=== PATIENT | female | born 1970 | race Caucasian/White ===

== ENCOUNTER → 2017-11-02 | Outpatient (CLI) | payer OTHER ==
[2017-11-02 12:11] LABS: Basophils % (A) 1 %; Eosinophils # (A) 0.2 k/uL (0-0.7); Eosinophils % (A) 4 %; HCT 43.5 % (34.0-46.0); HGB 13.9 gm/dL (11.4-16.0); Lymphocytes # (A) 1.2 k/uL (1.0-4.8); Lymphocytes % (A) 26 %; MCH 30.6 pg (25.0-35.0); MCHC 32.1 g/dL (31.0-37.0); MCV 95.3 fL (80.0-100.0); Mean Platelet Volume 7.3; Monocytes # (A) 0.4 k/uL (0-1.0); Monocytes % (A) 8 %; Neutrophils # (A) 2.7 k/uL (1.3-7.7); Neutrophils % (A) 59 %; Platelet Count 220 k/uL (150-450); RBC 4.57 m/uL (3.80-5.40); RDW 13.1 % (11.5-15.5); WBC 4.6 k/uL (3.8-10.6)
[2017-11-02 12:27] LABS: Anion Gap 9 mmol/L; Blood Urea Nitrogen 11 mg/dL (7-17); Carbon Dioxide 26 mmol/L (22-30); Chloride 106 mmol/L (98-107); Glucose 117 mg/dL (74-99); Sodium 141 mmol/L (137-145)
[2017-11-02 12:30] LABS: Potassium 3.9 mmol/L (3.5-5.1)
== END | disposition home or self-care (01) ==
LOC: LABPAT 11:19
PROVIDERS: ATTEND Obstetrics & Gynecology Obstetrics
DX: Z01.812 Encounter for preprocedural laboratory examination (principal); N92.0 Excessive and frequent menstruation with regular cycle
CPT/HCPCS: 36415; 80051; 82565; 82947; 84520; 85025; 86850; 86900; 86901; 87086

== ENCOUNTER 2017-11-10 05:58 | Day surgery (SDC) | payer OTHER ==
[2017-11-05 10:55] VITALS: BMI 23.0
[~2017-11-10 05:58] MED LIST: ACETAMINOPHEN IV (For NPO) 1,000 MG in EMPTY BAG 1 BAG IVPB ONE; DEXAMETHASONE SOD PHOSPHATE 10 MG/ML 1 ML VIAL IV ONE; HYDROmorphone 0.5 MG/0.5 ML SYRINGE IVP PRN; LIDOCAINE 1% 20 ML VIAL (10MG/ML) FOR IV START INTRADERMA PRN; ONDANSETRON 4 MG/2 ML VIAL IVP ONE; SCOPOLAMINE 1.5MG/72HR PATCH TRANSDERM ONE; ceFAZolin IN SWFI 2 GM/20 ML SYRINGE IVP ONE
[2017-11-10] MEDS: LACTATED RINGERS 1,000 ML IV SCH ×2 (06:44→19:25)
[2017-11-10] MEDS ORDERED: BUPIVACAINE (PF) 0.25% 30 ML VIAL SQ ONE ×2 (07:37)
[2017-11-10] MEDS ORDERED: HYDROmorphone (PF) 1 MG/ML ONE (07:41)
[2017-11-10] MEDS ORDERED: GLYCOPYRROLATE 0.2 MG/ML 2 ML VIAL ONE (07:41)
[2017-11-10] MEDS ORDERED: PROPOFOL 10 MG/ML 20 ML VIAL IV ONE (07:41)
[2017-11-10] MEDS ORDERED: LIDOCAINE 1% INJ 10MG/ML (20 ML MDV) ONE (07:41)
[2017-11-10] MEDS ORDERED: MIDAZOLAM 2 MG/2 ML VIAL ONE (07:41)
[2017-11-10] MEDS ORDERED: ROCURONIUM BROMIDE 10 MG/ML 10 ML VIAL IV ONE (07:41)
[2017-11-10] MEDS ORDERED: NEOSTIGMINE 1 MG/ML 10 ML VIAL ONE (07:41)
[2017-11-10] MEDS ORDERED: fentaNYL (PF) 50 MCG/ML 2 ML AMP ONE (07:41)
[2017-11-10] MEDS ORDERED: SUCCINYLCHOLINE CHLORIDE 100 MG/5 ML SYR IV ONE (07:41)
[2017-11-10] MEDS ORDERED: ONDANSETRON 4 MG/2 ML VIAL IVP PRN (07:44)
[2017-11-10] MEDS ORDERED: Acetaminophen-Codeine 300-30mg TAB PO PRN ×2 (07:44)
[2017-11-10] MEDS ORDERED: SIMETHICONE 80 MG CHEWABLE PO PRN (07:44)
[2017-11-10] MEDS ORDERED: LACTATED RINGERS 1,000 ML IV SCH (07:45)
[2017-11-10] MEDS ORDERED: IBUPROFEN IV 800 MG in SODIUM CHLORIDE 0.9% 250 ML IV ONE (07:46)
--- NOTE | 2017-11-10 09:29 | P.OP ---
Date of Procedure: 11/10/17 Preoperative Diagnosis: menometrorrhagia, failed endometrial ablation Postoperative Diagnosis: same Procedure(s) Performed: Robotic-assisted vaginal hysterectomy, diagnostic cystoscopy Anesthesia: NORAA Surgeon: Alina Mena Music Typographer #1: Dmitri Roberson Estimated Blood Loss (ml): 30 IV fluids (ml): 700 Urine output (ml): 350 Pathology: other (Uterus, fallopian tubes) Condition: stable Disposition: PACU Indications for Procedure: Failed ablation, abnormal uterine bleeding, dysmenorrhea Operative Findings: Diffuse endometriosis in the pelvis, functional left ovarian cyst, otherwise normal-appearing upper abdomen, pelvis Description of Procedure: Patient was seen in the preoperative area and informed consent was obtained prior to this surgery. Patient was then taken to the operating room where general anesthesia was obtained without difficulty by the anesthesia department. She was then prepped and draped in the normal sterile fashion in the dorsal lithotomy position. Speculum space the posterior vaginal vomiting until the cervix is visualized and grasped with a single-tooth tenaculum the endocervical canal was then dilated and a [employer] uterine manipulator was advanced into the unusual cavity as a means to manipulate the uterus during the procedure. Attention was then turned to the patient's abdomen where approx 2 fingerbreadths above the umbilicus a small skin incision is made, through this incision a small veress needle was placed, CO2 insufflation was allowed to occur once a drop in CO2 pressure was noted with insufflation of CO2 gas. Approximately 3 L of gas were used to obtain pneumoperitoneum. At this time the incision was elongated to 12 mm and a 12 mm trocar and sleeve is placed under direct visualization. An inspection of the patient's pelvis revealed the above-noted findings. At this time the additional port sites her platelets 10 cm lateral 3 cm inferior for the midline port these are upper ports individually machine 8 mm ports were placed under direct visualization. The left upper quadrant 12 mm trocar and sleeve is placed under direct visualization. At this time the [employer] robot was docked in usual fashion. The operative ports were then placed. The right operative on monopolar scissors , and the left operative arm the bipolar forceps was placed. Attention was then turned to the patient's left fallopian tube which was grasped gently and transected with cautery. Hemostasis was appreciated uterine ovarian ligament was then visualized regulated distally partially divided. This was continued through the broad cord around which was coagulated and transected. The bladder flap from the left wasn't created using sharp and blunt dissection. Attention was then turned to the patient's right adnexa which the floppy tube was grasped and it was transected with cautery hemostasis was appreciated. The utero- ovarian ligament was visualized regulated and transected. The stasis was noted once again. This continued through the broad cord around which was quite delivered 2 and transected. The bladder flap from the right was then created using sharp and blunt dissection. At this time a Ray-Cornelius was placed in the abdomen and the bladder was further dissected away from the operating field. This Ray-Cornelius was then removed. At this point the ascending branch from the uterine artery on the right was visualized regulated and transected hemostasis was noted this was then repeated on the left. The only remaining attachment at this point was the vaginal test not therefore a colpotomy incision was made in a circumferential fashion and the uterus and fallopian tubes were delivered through the vaginal opening. The pelvis was then irrigated copiously. Hemostasis was noted and the vaginal cuff closed with 0 Vicryl in a figure-of- eight fashion. approximately 5 sutures were used to obtain closure. At this time the instruments removed from the patient's abdomen and the [employer] N[employer] robot was undocked in the usual fashion. Attention was then turned the Acevedo catheter which was removed without difficulty. Cystoscopy was performed. The cystoscopy was placed through the urethra for the bladder bladder bubbles noted in both ureteral or position of the sling clear yellow urine. A 360 survey of the bladder revealed no injury. The cystoscope was removed and the Acevedo catheter was replaced. Attention was then turned to the patient's abdomen with the skin incisions were closed with 4-0 Vicryl in a separate particular fashion Steri-Strips and sterile dressings were applied. Next All counts are correct 2, patient tolerated procedure well and was taken the recovery room awake and in stable condition
[2017-11-10] MEDS: SENNOSIDES-DOCUSATE SODIUM 1 EACH TAB PO SCH (19:34)
[2017-11-11 05:08] VITALS: PULSE 74
--- NOTE | 2017-11-11 08:15 | P.PN ---
Subjective Progress Note Date: 11/11/17 Principal diagnosis: Postop day 1 status post robotic-assisted vaginal hysterectomy, diagnostic cystoscopy Patient has done well postoperatively. She is involuting without difficulty. Her Acevedo catheter was removed without difficulty this morning. She denies complaints of pain and states it is well-controlled with her oral medication that she is receiving. She denies any vaginal bleeding. She denies nausea or vomiting and is tolerating a regular diet. Objective - Vital Signs Vital signs: Vital Signs Temp 99 F 11/11/17 00:00 Pulse 74 11/11/17 00:00 Resp 16 11/11/17 00:00 BP 111/61 11/11/17 00:00 Pulse Ox 99 11/11/17 00:00 Intake & Output 11/10/17 11/11/17 11/11/17 18:59 06:59 18:59 Intake Total 1000 Output Total 460 1900 Balance 540 -1900 Weight 53.524 kg Intake: IV 1000 Output: Urine 430 1900 Uretheral (Acevedo) 250 Estimated Blood Loss 30 - Constitutional General appearance: Present: cooperative, no acute distress - Respiratory Respiratory: negative: CTA - Cardiovascular Rhythm: regular - Gastrointestinal Gastrointestinal Comment(s): Incisions, bandages are clear dry and intact General gastrointestinal: Present: soft Assessment and Plan (1) Menometrorrhagia Current Visit: Yes Status: Acute Code(s): N92.1 - EXCESSIVE AND FREQUENT MENSTRUATION WITH IRREGULAR CYCLE SNOMED Code(s): 433477069 (2) Dysmenorrhea Current Visit: Yes Status: Acute Code(s): N94.6 - DYSMENORRHEA, UNSPECIFIED SNOMED Code(s): 864672536 (3) S/P hysterectomy Narrative/Plan: Patient is doing well postoperatively, and we'll plan discharge home after she voids this morning. She will be given prescriptions for Motrin and Tylenol No. 3. Discharge instructions are reviewed with the patient in detail today. She will follow up with myself in 2 weeks in the office. She is urged to call the office prior to this if she has any further questions or concerns. Current Visit: Yes Status: Acute Code(s): Z90.710 - ACQUIRED ABSENCE OF BOTH CERVIX AND UTERUS SNOMED Code(s): 085718729 (4) Endometriosis Current Visit: Yes Status: Acute Code(s): N80.9 - ENDOMETRIOSIS, UNSPECIFIED SNOMED Code(s): 897654025
--- NOTE | 2017-11-11 08:18 | P.DS ---
Providers Date of admission: 11/10/2017 Expected date of discharge: 11/11/17 Attending physician: Alina Mena Primary care physician: Vanda Marie - Discharge Diagnosis(es) (1) Menometrorrhagia Patient was admitted to the hospital for a planned robotic-assisted vaginal hysterectomy, diagnostic cystoscopy. Patient surgery was completed without difficulty, for further details on the surgery please see the operative report. Patient's postoperative course has been uneventful. She is ambulating without difficulty. We are awaiting a spontaneous void this morning. She denies any complaints of pain, she is tolerating a regular diet without nausea or vomiting. Current Visit: Yes Status: Acute (2) Dysmenorrhea Current Visit: Yes Status: Acute (3) S/P hysterectomy Current Visit: Yes Status: Acute (4) Endometriosis Current Visit: Yes Status: Acute Plan - Discharge Summary Discharge Rx Participant: Yes New Discharge Prescriptions: No Action Aspirin 650 mg PO DAILY PRN PRN Reason: Pain Buprenorphine HCl [Subutex] 8 mg SL BID Discharge Medication List Aspirin 650 mg PO DAILY PRN 11/05/17 [History] Buprenorphine HCl [Subutex] 8 mg SL BID 11/05/17 [History] Follow up Appointment(s)/Referral(s): Alina Mena DO [Doctor of Osteopathic Medicine] - 2 Weeks Patient Instructions/Handouts: Hysterectomy (DC) Activity/Diet/Wound Care/Special Instructions: no intercourse or tub baths until cleared by me. I would like patient to start taking senna s 2 pills at bedtime in addition Discharge Disposition: HOME SELF-CARE
[2017-11-11] MEDS: SENNOSIDES-DOCUSATE SODIUM 1 EACH TAB PO SCH (08:32)
[2017-11-11 10:29] LABS: Basophils # (A) 0.1 k/uL (0-0.2); Basophils % (A) 0 %; Eosinophils % (A) 0 %; HCT 44.5 % (34.0-46.0); HGB 14.2 gm/dL (11.4-16.0); Lymphocytes # (A) 1.7 k/uL (1.0-4.8); Lymphocytes % (A) 14 %; MCH 30.7 pg (25.0-35.0); MCHC 31.8 g/dL (31.0-37.0); MCV 96.4 fL (80.0-100.0); Mean Platelet Volume 7.4; Monocytes # (A) 0.5 k/uL (0-1.0); Monocytes % (A) 4 %; Neutrophils # (A) 10.1 k/uL (1.3-7.7); Neutrophils % (A) 80 %; Platelet Count 271 k/uL (150-450); RBC 4.62 m/uL (3.80-5.40); RDW 13.6 % (11.5-15.5); WBC 12.6 k/uL (3.8-10.6)
[2017-11-11 12:25] VITALS: BP 103/57; RESP 18; TEMP 98.3
== END 2017-11-11 12:30 | disposition home or self-care (01) ==
LOC: OR 05:58 → 4FBP 09:25 → OR 11-11 12:30
PROVIDERS: ATTEND Obstetrics & Gynecology Obstetrics
DX: D26.9 Other benign neoplasm of uterus, unspecified (principal); N80.0 Endometriosis of uterus; N70.11 Chronic salpingitis; N83.202 Unspecified ovarian cyst, left side; Z98.51 Tubal ligation status; Z79.891 Long term (current) use of opiate analgesic; F17.210 Nicotine dependence, cigarettes, uncomplicated
CPT/HCPCS: 81025; 86900; 86901; 85025; 86850; 88307; 58552; J1100; J2405; J0131; J0690